=== PATIENT | female | born 2000 | race Hispanic/Latino ===

== ENCOUNTER 2018-10-11 19:00 | Emergency (ER) | payer MEDICAID, OTHER ==
[~2018-10-11 19:00] MED LIST: DUONEB; FLUT1DIS4 IH; MONT10TA21 PO; PRED20TA3 PO
[2018-10-11] MEDS ORDERED: IPRATROPIUM/ALBUTEROL SULFATE 3 ML SOLUTION IH ONE (19:27)
[2018-10-11] MEDS ORDERED: ACETAMINOPHEN EXTRA STRENGTH 500 MG TABLET ONE (19:34)
[2018-10-11] MEDS ORDERED: ONDANSETRON HCL 4 MG/2 ML VIAL ONE (19:34)
[2018-10-11 19:49] LABS: BASOPHILS % (AUTO) 0.3 % (0.0-5.0); EOSINOPHILS % (AUTO) 1.6 % (0.0-8.0); HEMATOCRIT 42.1 % (36-48); LYMPHOCYTES % (AUTO) 7.3 % (21.0-51.0); MEAN CORPUSCULAR HEMOGLOBIN 30.6 pg (27.0-33.0); MEAN CORPUSCULAR HGB CONC 34.3 g/dL (32.0-36.0); NEUTROPHILS % (AUTO) 86.8 % (40.0-77.0); NUCLEATED RED BLOOD CELLS 0.1 % (0.0-0.19); PLATELET COUNT (AUTO) 375 K/uL (130-400); RED BLOOD CELL COUNT(AUTO) 4.73 MIL/uL (4.00-5.50); RED CELL DISTRIBUTION WIDTH 12.9 % (11.0-15.5); WHITE BLOOD COUNT (AUTO) 21.4 K/uL (4.8-10.8)
[2018-10-11 19:59] LABS: POTASSIUM 3.5 mmol/L (3.5-5.1)
[2018-10-11] MEDS ORDERED: LEVOFLOXACIN 750 MG/D5W 150 ML 150 ML ONE (20:21)
[2018-10-11] MEDS ORDERED: METHYLPREDNISOLONE SOD SUCC 125MG/2ML VIAL ONE (21:22)
[2018-10-11] MEDS ORDERED: MORPHINE SULFATE 4 MG/1ML SYG ONE (22:41)
== END 2018-10-12 00:30 | disposition home or self-care (01) ==
LOC: EDH 19:00
DX: J45.901 Unspecified asthma with (acute) exacerbation (principal); R11.2 Nausea with vomiting, unspecified; Z88.6 Allergy status to analgesic agent
CPT/HCPCS: 36415; 71045; 80048; 81025; 83605; 84484; 85025; 87804 ×2; 93005; 94640; 96361; 96365; 96366; 96375; 99284; J1956; J2270; J2405; J2930

== ENCOUNTER 2022-12-12 10:58 | Emergency (ER) | payer MEDICAID, OTHER ==
[~2022-12-12] VITALS: Ht 152.4 cm; Wt 86.2 kg
[~2022-12-12 10:58] MED LIST changes: +MONT-46 PO; -MONT10TA21 PO
[2022-12-12] MEDS ORDERED: IPRATROPIUM 0.5 MG/2.5 ML INH IH ONE (12:00)
[2022-12-12] MEDS ORDERED: DEXAMETHASONE 4 MG TAB PO SCH (12:00)
[2022-12-12] MEDS ORDERED: ALBUTEROL 0.083% 2.5 MG/3 ML INH IH ONE (12:00)
[2022-12-12 13:13] VITALS: BP 126/62
[2022-12-12] MEDS ORDERED: PRED20TA3 PO (13:13)
== END 2022-12-12 13:23 | disposition home or self-care (01) ==
LOC: EDH 10:58
DX: J45.901 Unspecified asthma with (acute) exacerbation (principal); Z20.822 Contact with and (suspected) exposure to COVID-19; Z79.899 Other long term (current) drug therapy; Z98.890 Other specified postprocedural states; Z88.8 Allergy status to other drugs, medicaments and biological substances
CPT/HCPCS: 99283; 87635; 87880; 87804 ×2; 94640; C9803; J8540